=== PATIENT | female | born 1985 | race Caucasian/White ===

== ENCOUNTER 2016-05-26 06:10 | Emergency (ER) | payer OTHER ==
[~2016-05-26] VITALS: Ht 170.2 cm; Wt 90.7 kg
[2016-05-26 06:10] VITALS: BP 154/95; PULSE 118; RESP 20; TEMP 98.2; O2SAT 100
--- NOTE | 2016-05-26 06:11 | NUR ---
Placed in room 01 . Brought in by law enforcement. Report given to ALESSANDRA Becerra.
--- NOTE | 2016-05-26 06:12 | NUR ---
Patient AAO x4, sitting in bed, brought in by law enforcement for blood alcohol draw status post routine traffic stop. Patient denies shortness of breath, denies chest pain, denies pain . Patient denies having any medical complaints stating, "No I'm fine." No acute distress noted. Officers at bedside. Will continue to monitor.
--- NOTE | 2016-05-26 06:28 | NUR ---
Written and verbal consent obtained from patient for blood alcohol, name and verified by patient. Disinfected patient's skin with povidone iodine that did not contain alcohol or other volatile organic compound. Collected the blood from the subject named by venipuncture, in the presence of Officer [id number]. Used a sterile, dry hypodermic needle and dry vacuum blood collection. The dry vacuum blood collection was supplied by the officer named above. Withdrew a specimen of blood from R AC of the subject named above. Inverted the blood tube several times to ensure that the preservative and anticoagulant were thoroughly mixed in the blood specimen. I initialed the blood tube label for identification. The labeled blood tube was handed directly to the Officer named above. The blood tube stopper remained in place while I had possession of the blood tube. The Officer placed tube into envelope and sealed it in my presence. Envelope initialed by myself and Officer named above. Patient tolerated well, bandage applied, and bleeding controlled.
[2016-05-26 06:33] VITALS: BP 140/85; PULSE 100; RESP 20; TEMP 98.2; O2SAT 100
--- NOTE | 2016-05-26 06:33 | NUR ---
Patient discharged in Law enforcement custody. Ambulated out of ED in a calm and collected manner in full cooperation with law enforcement officers. No acute distress noted.
== END 2016-05-26 06:33 ==
LOC: SED 06:10
DX: Z02.89 Encounter for other administrative examinations (principal)